=== PATIENT | male | born 1960 | race African-American/Black ===

== ENCOUNTER 2022-06-10 22:41 | Emergency (ER) | payer MEDICAID, OTHER ==
[~2022-06-10] VITALS: Ht 185.4 cm; Wt 113.0 kg
[2022-06-11 00:16] VITALS: BP 155/77
[2022-06-11] MEDS ORDERED: PRED20TA2 PO (01:00)
[2022-06-11] MEDS ORDERED: methylPREDNISolone SOD SUCC 125 MG/2 ML VL IM ONE (01:00)
== END 2022-06-11 01:09 | disposition home or self-care (01) ==
LOC: ER 22:41
DX: R21 Rash and other nonspecific skin eruption (principal); Z79.899 Other long term (current) drug therapy
CPT/HCPCS: 96372; 99283; J2930